=== PATIENT | male | born 1945 | race Hispanic/Latino ===

== ENCOUNTER 2017-04-28 20:07 | Emergency (ER) | payer MEDICARE ==
[~2017-04-28 20:07] MED LIST: ADRENALIN ONE
--- NOTE | 2017-04-28 20:15 | Emergency Department Report ---
ED CPR HPI - General Chief Complaint: Cardiac Arrest/CPR Stated Complaint: CARDIAC ARREST Time Seen by Provider: 04/28/17 20:14 Source: EMS Mode of arrival: Stretcher Limitations: Altered Mental Status, Physical Limitation - History of Present Illness Initial Comments: This is a 71-year-old male, who was previously unknown to me. The patient is brought to the hospital by EMS as an [id number] cardiac arrest. EMS reports that patient was found down at home, and bed, for uncertain duration of time, via uncertain mechanism. EMS indicates that presenting rhythm was pulseless electrical activity. EMS intubated in the field. EMS reports giving high quality CPR prior to arrival, and the estimate that the patient was pulseless in the field for at least 30 minutes. They report giving 3 rounds of epinephrine, and shocked the patient 1, post-shock rhythm was pulseless left activity. No further history is available at this time, patient is currently intubated, pulseless, obtunded. MD Complaint: found unresponsive Bystander CPR Performed: No AED Applied by Bystander/[place] Erector: No Number of Shocks Delivered: 1 Initial Findings in the Field: unresponsive, PEA ROSC in the Field: No Associated Injuries: No Associated Symptoms: other (patient nonverbal in the field) Treatments Prior to Arrival: intubation, chest compressions, defribrillated shocks #, epinephrine mgs # ED Review of Systems ROS: Stated complaint: CARDIAC ARREST Other details as noted in HPI Comment: Unobtainable due to pts medical conditions ED Physical Exam - General Limitations: Other (patient intubated, nonverbal) General appearance: obese, other (intubated) - Head Head exam: Present: normocephalic - Eye Eye exam: Present: other (pupils are fixed and dilated) - ENT ENT exam: Present: other (endotracheal tube noted in oropharynx) - Neck Neck exam: Present: full ROM - Respiratory Respiratory exam: Present: other (no breath sounds unless [id number]-txni ventilation is applied) - Cardiovascular Cardiovascular Exam: Present: other (patient is pulseless) - GI/Abdominal GI/Abdominal exam: Present: soft, distended - exam: Present: normal inspection, other (Delarosa catheter noted) - Extremities Exam Extremities exam: Present: other (mottled skin) - Back Exam Back exam: Present: normal inspection - Neurological Exam Neurological exam: Present: other (patient nonverbal) - Psychiatric Psychiatric exam: Present: other (intubated, nonverbal) - Skin Skin exam: Present: other ( mottled skin) ED Medical Decision Making - Medical Decision Making Differential diagnosis: Intracranial hemorrhage, acute coronary syndrome, sepsis , pulmonary embolus, bleed, hemorrhage Patient is pulseless upon arrival. Pupils are fixed and dilated and do not react to light. Bedside ultrasound demonstrates no coordinated ventricular activity. Patient has been pulseless for a prolonged period of time, therefore resuscitation efforts are terminated secondary to multiple futile factors. Family not available at this time. Critical care attestation.: If time is entered above; I have spent that time in minutes in the direct care of this critically ill patient, excluding procedure time. ED Disposition Clinical Impression: Cardiac arrest Disposition: DC-20 Is pt being admited?: No Does the pt Need Aspirin: No Condition: Undetermined
== END 2017-04-28 21:30 ==
LOC: ED 20:07
DX: I46.9 Cardiac arrest, cause unspecified (principal)
CPT/HCPCS: 99285; J0171